=== PATIENT | female | born 1940 | race Caucasian/White ===

== ENCOUNTER 2024-07-26 15:07 | Observation (INO) | payer OTHER, SELFPAY ==
[2024-07-26] VITALS (8 sets, daily range): BP systolic 129–180; BP diastolic 60–93; BMI 24.4
--- NOTE | 2024-07-26 11:01 | ED.GENMED ---
History of Present Illness
<LILLIAN Stark - Last Filed: 07/26/24 14:23>
General
Chief Complaint: Weakness
Source: patient
Exam Limitations: none
Time Seen by Provider: 07/26/24 10:55
Nursing documentation reviewed up to this point in time: agreed with
History of Present Illness
History of Present Illness:
Patient is a 3-year-old female who presents to the ER for evaluation. She reports last night she noticed her right hand was numb. She woke up this morning around 8:45 am and noticed that her right hand was weak and she could not hold a coffee cup.
She denied any associate chest pain shortness of breath. She reports her right leg feels fine. She denies any headache blurry vision nausea vomiting.
Review of Systems
<LILLIAN Stark - Last Filed: 07/26/24 14:23>
Review of Systems
Allergies reviewed?: Yes
All Other Systems: ROS reviewed and negative except as documented in HPI and ROS
Constitutional: Reports no symptoms
Respiratory: Reports no symptoms
Cardiac: Reports no symptoms; Denies chest pain
ABD/GI: Reports no symptoms
: Reports no symptoms
Musculoskeletal: Reports no symptoms
Skin: Reports no symptoms
Neurological: Reports no symptoms
Psychiatric: Reports no symptoms
Phy Exam
<LILLIAN Stark - Last Filed: 07/26/24 14:23>
General Physical Exam
General Presentation: no apparent distress
General age: appears stated age
General Skin: warm and dry
General Habitus: normal
General Mental: alert
General Hydration: appears well hydrated
NIH Stroke Score
Level of Consciousness: 0 - Alert
LOC questions: 0-Answers both correctly
LOC Commands: 0-Performs both correctly
Best Gaze: 0-Normal
Visual Morocho: 0=Normal, no visual loss
Facial palsy: 0=Normal, symmetrical
Motor - Right Arm: 1=Drift < 10 seconds
Motor - Left Arm: 0=No drift 10 seconds
Motor - Right Le-No drift 5 seconds
Motor - Left Le-No drift 5 seconds
Limb Ataxia: 0-Absent
Sensation: 0-Normal
Best Language: 0-No aphasia
Dysarthria: 0-Normal
Extinction and Inattention: 0-No abnormality
Total Score:: 1
Cerebellar
Cerebellar Function: other (Patient having difficulty with [id number] on right hand due to weakness )
Musculoskeletal Exam
Musculoskeletal Exam: full ROM
Skin Exam
Skin Exam: normal color and warm/dry
Psychiatric Exam
Psychiatric Exam: normal mood/affect
<Jana Schmidt DO - Last Filed: 07/26/24 15:45>
NIH Stroke Score
Total Score:: 1
Course
<LILLIAN Stark - Last Filed: 07/26/24 14:23>
Orders/Labs/Results
Orders:
Orders
07/26/24 10:45
Electrocardiogram (*1) Urgent
Reason for Study: Other
Other Reason for Exam: Possible Stroke
CT Head W/o Iv Contrast Urgent
Comment:
Reason For Exam: R arm weakness
EKG- Treatment ONCE
07/26/24 10:52
Complete Blood Count/With Diff Urgent
Comprehensive Metabolic Panel Urgent
PTT Urgent
Prothrombin Time Urgent
Troponin I Urgent
07/26/24 11:06
CT Head & Neck Angio W/wo IV Urgent
Comment:
Reason For Exam: right arm weakness
07/26/24 11:16
Diphenhydramine [Benadryl] 50 mg IV NOW STA
Hydrocortisone Sod Succinate [Solu-Cortef] 200 mg IV NOW STA
07/26/24 11:27
0.9% Sodium Chloride 1000 ml [Nss] 1,000 ml IV BOLUS
07/26/24 14:18
Clopidogrel Bisulfate [Plavix] 300 mg PO NOW STA
07/26/24 14:41
Admit/Transfer Patient As Directed
Co-Sign Provider:
Level of Care: Observation services
Assign to:: Telemetry
Physician / Group: denise
Diagnosis: tia
Reason for Telemetry: CVA/TIA
Date to Stop Telemetry: 07/29/24
Time to Stop Telemetry: 11:00
Code Status As Directed
Resuscitation Status: Full Code
PRN Pain Medication Management As Directed
May give lesser potent ordered pain med per pt: Yes
preference::
Protocol:: Medication orders for pain may be administered in a
manner that supports deferring to patient preference
when the pt is:
- Requesting an ordered lesser potent pain medication.
Least to most potent pain medications are defined
as: acetaminophen < NSAID < tramadol < opioids
(morphine, oxycodone, hydromorphone).
- Requesting a lesser dose of the same medication IF
ORDERED.
- Requesting a less intrusive route of administration
if both routes are prescribed by the provider (PO <
IV).
07/26/24 18:00
Atorvastatin [Lipitor] 40 mg PO QPM
07/27/24 08:00
Aspirin Low Dose EC [Aspir Low (Enteric Coated)] 81 mg PO DAILY
07/29/24 11:00
DC Protocol for Telemetry ONCE
Abnormal Lab Results
07/26/24
10:52
RBC 4.04 L 10^6/uL
(4.20-5.40)
Hct 36.6 L %
(37.0-47.0)
Absolute Monos (auto) 0.8 H 10^3/uL
(0.1-0.6)
Monocytes % 12.0 H %
(1.7-9.3)
BUN 26 H mg/dl
(7-17)
Glucose 108 H mg/dl
(70-99)
07/26/24 10:52
07/26/24 10:52
Vital Signs
Initial and Last Documented VS:
Initial Vital Signs
Temp Pulse Resp BP Pulse Ox
98.5 F 68 18 167/93 97
07/26/24 10:39 07/26/24 10:39 07/26/24 10:39 07/26/24 10:39 07/26/24 10:39
Last Documented Vital Signs
Temp Pulse Resp BP Pulse Ox
98.5 F 62 14 172/70 93
07/26/24 10:39 07/26/24 14:00 07/26/24 14:00 07/26/24 12:00 07/26/24 12:17
Brown Stock Washer consulted with Physician
Brown Stock Washer consulted with physician?: Yes
Name of Physician Consulted: Roxana
<Jana Schmidt, DO - Last Filed: 07/26/24 15:45>
Orders/Labs/Results
Orders:
Orders
07/26/24 10:45
Electrocardiogram (*1) Urgent
Reason for Study: Other
Other Reason for Exam: Possible Stroke
CT Head W/o Iv Contrast Urgent
Comment:
Reason For Exam: R arm weakness
EKG- Treatment ONCE
07/26/24 10:52
Complete Blood Count/With Diff Urgent
Comprehensive Metabolic Panel Urgent
PTT Urgent
Prothrombin Time Urgent
Troponin I Urgent
07/26/24 11:06
CT Head & Neck Angio W/wo IV Urgent
Comment:
Reason For Exam: right arm weakness
07/26/24 11:16
Diphenhydramine [Benadryl] 50 mg IV NOW STA
Hydrocortisone Sod Succinate [Solu-Cortef] 200 mg IV NOW STA
07/26/24 11:27
0.9% Sodium Chloride 1000 ml [Nss] 1,000 ml IV BOLUS
07/26/24 14:18
Clopidogrel Bisulfate [Plavix] 300 mg PO NOW STA
07/26/24 14:41
Admit/Transfer Patient As Directed
Co-Sign Provider:
Level of Care: Observation services
Assign to:: Telemetry
Physician / Group: denise
Diagnosis: tia
Reason for Telemetry: CVA/TIA
Date to Stop Telemetry: 07/29/24
Time to Stop Telemetry: 11:00
Code Status As Directed
Resuscitation Status: Full Code
PRN Pain Medication Management As Directed
May give lesser potent ordered pain med per pt: Yes
preference::
Protocol:: Medication orders for pain may be administered in a
manner that supports deferring to patient preference
when the pt is:
- Requesting an ordered lesser potent pain medication.
Least to most potent pain medications are defined
as: acetaminophen < NSAID < tramadol < opioids
(morphine, oxycodone, hydromorphone).
- Requesting a lesser dose of the same medication IF
ORDERED.
- Requesting a less intrusive route of administration
if both routes are prescribed by the provider (PO <
IV).
07/26/24 18:00
Atorvastatin [Lipitor] 40 mg PO QPM
07/27/24 08:00
Aspirin Low Dose EC [Aspir Low (Enteric Coated)] 81 mg PO DAILY
07/29/24 11:00
DC Protocol for Telemetry ONCE
Abnormal Lab Results
07/26/24
10:52
RBC 4.04 L 10^6/uL
(4.20-5.40)
Hct 36.6 L %
(37.0-47.0)
Absolute Monos (auto) 0.8 H 10^3/uL
(0.1-0.6)
Monocytes % 12.0 H %
(1.7-9.3)
BUN 26 H mg/dl
(7-17)
Glucose 108 H mg/dl
(70-99)
07/26/24 10:52
07/26/24 10:52
Vital Signs
Initial and Last Documented VS:
Initial Vital Signs
Temp Pulse Resp BP Pulse Ox
98.5 F 68 18 167/93 97
07/26/24 10:39 07/26/24 10:39 07/26/24 10:39 07/26/24 10:39 07/26/24 10:39
Last Documented Vital Signs
Temp Pulse Resp BP Pulse Ox
98.5 F 62 14 172/70 93
07/26/24 10:39 07/26/24 14:00 07/26/24 14:00 07/26/24 12:00 07/26/24 12:17
<LILLIAN Stark - Last Filed: 07/26/24 14:23>
MDM/Problems Addressed
Differential Diagnosis Includes:
not limited to : CVA
MDM/Problems Addressed:
This document patient 83-year-old female who presented to the ER for evaluation. Patient reported last night around 8:30 PM she noticed her right hand was numb. This morning when she woke up around 8:30 AM she noticed her right arm was weak. She
reports numbness has resolved. She denies any associated headache blurry vision chest pain shortness of breath. She denies any left upper extremity/bilateral lower extremity weakness.
On exam she has obvious weakness to the right arm but no other deficit. CAT scan ordered on arrival patient was eval by ED attending.
Case discussed with neurology who evaluated patient. ct shows a calcification on right side which is not consistent with patient's symptoms. Patient evaluated by neurology CTA ordered: No findings to suggest internal carotid artery
atherosclerotic narrowing no findings to suggest internal carotid artery dissection bilaterally.
1350:Pt symptoms are now resolved . BP is elevated however patient normally does have high blood pressure and is on HCTZ. as d/c w/ neuro will adm
<LILLIAN Stark - Last Filed: 07/26/24 14:23>
*Radiology
Radiology exam reviewed: radiology read reviewed
*Pulse Oximetry
Patient hypoxic: no
*EKG
Interpreted by ED Provider?: Yes
Interpretation: normal
Heart Rate: 61
Rhythm: sinus
Ischemia: non-specific ST changes
*Critical Care Note
Total Time (30-74mins, 75-104mins- exclusive of procedures): Not Applicable
<LILLIAN Stark - Last Filed: 07/26/24 14:23>
Patient Management
Discussion with other providers: Tan Room Supervisor (neuro DR Wilkinson )
ED Attending Note
<LILLIAN Stark - Last Filed: 07/26/24 14:23>
-
Portions of this chart may have been created with voice recognition software.� Occasional wrong word or��sound alike� substitutions may have occurred due to the inherent limitations of voice recognition software.
<Jana Schmidt DO - Last Filed: 07/26/24 15:45>
ED Attending Note
Patient seen and examined by attending physician: Yes
I performed the substantive portion of visit, reviewed & personally made and approve the management plan that is documented in note by myself or RIGOBERTO.: Yes
ED Attending Note:
83-year-old female history of hypertension presenting with right arm weakness starting this morning. Patient states that last night around 830 she was having numbness to her right hand. Patient states that she went to bed around midnight with no
weakness. Patient said when she woke up this morning, she noted that her right hand was heavier and had difficulty holding her coffee cup in her right hand.. Patient denies any visual changes, speech changes, facial droop or other weakness.
Patient is not on blood thinners. No history of similar symptoms. Heart regular rate rhythm, lungs clear, abdomen soft also nontender. PERRLA, EOMI. Cranial nerves II through XII grossly intact no focal deficits. 4-5 strength right upper
extremity, 5 out of 5 strength left upper extremity and bilateral lower extremities. Right upper extremity pronator drift. Given onset of symptoms greater than 4.5 hours ago, patient outside window to receive TNK. Stroke workup, discuss with
neurology, admission
Discharge Plan
Departure
Patient Disposition: Admit
Date of Disposition: 07/26/24
Time of Disposition: 14:17
Admit to: Telemetry
Admit to doctor: hospitalist
Presentation/result/management discussed w/ accepting MD/DO: Hospitalist
Patient with high blood pressure during this ER visit?: Yes
Condition: Fair
Covid-19: Not Applicable
Discharge Problem:
TIA (transient ischemic attack), elevated blood presure
Interventions
Interventions:
*Risk Screen - Suicide Last Done: 07/26/24 10:39
*General Assessment Last Done: 07/26/24 10:39
*Neglect/Abuse Screening Last Done: 07/26/24 11:15
*ED COVID-19 Vaccine History Last Done: 07/26/24 11:15
ED- Cardiac Assessment Last Done: 07/26/24 11:48
ED- Neurological Assessment Last Done: 07/26/24 14:35
ED- Pulmonary Assessment Last Done: 07/26/24 11:15
[2024-07-26 11:03] LABS: % Basophils 0.8 % (0-2); % Eosinophils 3.2 % (0-6); % Immature Granulocytes 0.3 % (0-0.5); % Lymphocytes 30.4 % (20.5-51.1); % Neutrophils 53.3 % (42.2-75.2); Absolute Basophils 0.1 10^3/uL (0-0.2); Absolute Eosinophils 0.2 10^3/uL (0-0.7); Absolute Monocytes 0.8 10^3/uL (0.1-0.6); Absolute Neutrophils 3.5 10^3/uL (1.4-6.5); Hematocrit 36.6 % (37.0-47.0); Hemoglobin 12.3 g/dL (12.0-16.0); Mean Corp Hgb Conc. 33.6 g/dL (33.0-37.0); Mean Corpuscular Hgb 30.4 pg (27.0-31.0); Mean Corpuscular Volume 90.6 fL (81.0-99.0); Mean Platelet Volume 8.7 fL (7.4-10.4); Nucleated Red Blood Cells % 0 %; Platelet Count 191 10^3/uL (130-400); Red Blood Cell Count 4.04 10^6/uL (4.20-5.40); Red Cell Dist. Width 13.5 % (11.5-14.5); White Blood Cell Count 6.6 10^3/uL (4.8-10.8)
[2024-07-26 11:11] LABS: INR 0.91; PT 12.6 Sec (11.4-14.6)
[2024-07-26 11:12] LABS: APTT 25.2 Sec (23.4-35.0)
[2024-07-26 11:15] LABS: ALT (SGPT) 18 U/L (0-35); AST (SGOT) 29 U/L (14-36); Albumin 4.1 g/dl (3.5-5.0); Alkaline Phosphatase 61 U/L (38-126); Blood Urea Nitrogen 26 mg/dl (7-17); Carbon Dioxide 29 mmol/L (22-30); Chloride 105 mmol/L (98-107); Glucose 108 mg/dl (70-99); Potassium 4.4 mmol/L (3.5-5.1); Sodium 141 mmol/L (135-145); Total Bilirubin 1.1 mg/dl (0.2-1.3); Total Protein 7.6 g/dl (6.3-8.2); eGFR > 60.00
[2024-07-26] MEDS: SOLU-CORTEF 200 MG IV (11:21)
[2024-07-26] MEDS: BENADRYL 50 MG IV (11:21)
[2024-07-26 11:26] LABS: Troponin I 0.013 ng/ml
[2024-07-26] MEDS: NSS 1000 IV (11:51)
--- NOTE | 2024-07-26 13:26 | CON.NEURO ---
Neuro Assessment/Plan
Assessment
head CT imgs rev'd, no bleed, no major stroke, right sylvian fissure calcified artery
CTA head/neck images and rept rev'd, no LVO, no hemodynamically significant stenosis; mildly carotid calcifications, distal left V3/V4 vertebral stenosis
seen after imaging, patient symtoms are resolved
this clinically appears to be a TIA
Plan
Admit for tele, blood pressure, no need for permissive HTN as she is not MAP dependent. Ideally her blood pressure decreases ~25% tomorrow and she could be discharged
continue ASA 81
Load Plavix 300, then Plavix 75 x21 days
continue Lipitor 40 daily
spoke with patient that this is clinically a resolved TIA; MRI being optional, seeing a stroke changes the diagnosis but not the treatment, inpatient MRI scanner down for repairs, decision to not do MRI
Consultation
Order
Date of Consultation: 07/26/24
Requesting Provider: Loren Bales
Reason for Consult: Stroke
Subjective/Objective
Subjective Data
Date of Service: July 26, 2024
83 year old right handed woman, last night ~8:30 pm developed right hand weakness/numbness; this morning woke up with right arm weakness. in ED initial NIHSS was 1 for right arm; resolved after CTA. no bloodthinners
Objective Data
Vital Signs
Temp Pulse Resp BP Pulse Ox
36.9 C 62 21 180/76 95
07/26/24 10:39 07/26/24 11:45 07/26/24 11:45 07/26/24 11:14 07/26/24 11:45
Lab Results
07/26/24 10:52
07/26/24 10:52
PT 12.6 Sec (11.4-14.6) 07/26/24 10:52
INR 0.91 07/26/24 10:52
APTT 25.2 Sec (23.4-35.0) 07/26/24 10:52
Sodium 141 mmol/L (135-145) 07/26/24 10:52
Potassium 4.4 mmol/L (3.5-5.1) 07/26/24 10:52
BUN 26 mg/dl (7-17) H 07/26/24 10:52
Glucose 108 mg/dl (70-99) H 07/26/24 10:52
Calcium 10.0 mg/dl (8.4-10.2) 07/26/24 10:52
Patient Allergies
Iodinated Contrast Media Allergy (Verified 07/26/24 10:41)
Hives
morphine Allergy (Verified 07/26/24 10:41)
Hives
CVA Assessment
Onset of Stroke Symptoms
Onset of symptoms known: Yes
Date of onset of symptoms: 07/25/24
Time of onset of symptoms: 20:30
NIH Stroke Score
Level of Consciousness: 0 - Alert
LOC Questions: 0-Answers both correctly
LOC Commands: 0-Performs both correctly
Best Horizontal Gaze: 0-Normal
Visual Morocho: 0=Normal, no visual loss
Facial Palsy: 0=Normal, symmetrical
Motor - Right Arm: 1=Drift < 10 seconds
Motor - Left Arm: 0=No drift 10 seconds
Motor - Right Le-No drift 5 seconds
Motor - Left Le-No drift 5 seconds
Limb Ataxia: 0-Absent
Sensation: 0-Normal
Best Language: 0-No aphasia
Dysarthria: 0-Normal
Extinction and Inattention: 0-No abnormality
Total Score:: 1
Tenecteplase Contraindications
Inclusion and Exclusion criteria reviewed: Yes
Reasons for NON-Tx with Thrombolytics ABSOLUTE Exclusions: Time-out of window
Physical Exam
-
AAOx3, speech clear, language intact
VFF, EOMI, face symmetric
RUE 4/5, LUE and b/l LE 08/22
sensation intact to touch/pin
[2024-07-26] MEDS: PLAVIX 300 MG PO (14:32)
--- NOTE | 2024-07-26 14:44 | HPS.HSE ---
Family Physician
-
Family Physician: NOT KNOW UNKNOWN - PT DOES
Chief Complaint
-
right hand weakness
History of Present Illness
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 Last night she noticed that her right hand was
numb. She woke up this morning at 845 and noticed that her right hand was weak and she could not hold a cup of coffee. She denies any chest pain shortness of breath. Right leg feels fine. Denies headache, blurry vision, nausea or vomiting.
Denies any symptoms currently.
Denies smoking or alcohol use.
Denies any family history of strokes.
Medical History
Past Medical History
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
Past Surgical History: Reports None
Social History
Tobacco: Non-smoker
Alcohol: None
Drug: None
Family History
Family History: Not pertinent
Allergies / Home Medications
Allergies reflects when Allergies were last updated in [facility].
Home Medications with original date entered in [facility]
Allergy/Medication List:
Allergies
Allergy/AdvReac Type Severity Reaction Status Date / Time
Iodinated Contrast Media Allergy Hives Verified 07/26/24 10:41
morphine Allergy Hives Verified 07/26/24 10:41
Home Medications
citalopram 40 mg tablet (Celexa) 40 mg PO DAILY 07/26/24
Review of Systems
-
History Source: Patient
A 12 point ROS was completed and negative except as noted: Yes
Constitutional: Reports No Symptoms
EENT: Reports No Symptoms
Respiratory: Reports No Symptoms
Cardiac: Reports No Symptoms
Abdomen/GI: Reports No Symptoms
: Reports No Symptoms
Musculoskeletal: Reports No Symptoms
Skin: Reports No Symptoms
Neurological: Reports See HPI
Endocrine: Reports No Symptoms
Hematologic/Lymphatic: Reports No Symptoms
Psych: Reports No Symptoms
Physical Exam
Vital Signs
Vital Signs
Temp Pulse Resp BP Pulse Ox
98.5 F 62 14 172/70 93
07/26/24 10:39 07/26/24 14:00 07/26/24 14:00 07/26/24 12:00 07/26/24 12:17
Physical Exam
General: Well Developed, Well Nourished and No Apparent Distress
HEENT: NormoCephalic, Moist mucous membranes and Atraumatic
Respiratory: Clear
Cardiac: S1/S2 and Regular Rhythm; No Murmur or Rub
GI: Soft, Non Tender, Non Distended and Normal Bowel Sounds; No Organomegaly
Rectal: Deferred by Provider
Musculoskeletal: No Clubbing, No Cyanosis and No Edema
Skin: No Rash
Neuro: Nonfocal/grossly intact
Laboratory Results
-
07/26/24 10:52
07/26/24 10:52
Laboratory Results
PT 12.6 Sec (11.4-14.6) 07/26/24 10:52
INR 0.91 07/26/24 10:52
APTT 25.2 Sec (23.4-35.0) 07/26/24 10:52
Total Bilirubin 1.1 mg/dl (0.2-1.3) 07/26/24 10:52
AST 29 U/L (14-36) 07/26/24 10:52
ALT 18 U/L (0-35) 07/26/24 10:52
Alkaline Phosphatase 61 U/L (38-126) 07/26/24 10:52
Troponin I 0.013 ng/ml 07/26/24 10:52
Data Reviewed
-
Lab Data: Labs Reviewed by me
Old Records: Reviewed
Impression/Plan
-
IMPRESSION:
PLAN:
# Likely TIA
-No symptoms currently
- CTA head and neck showed no acute findings
- Aspirin and Plavix given, continue aspirin
- Check MRI brain
-Check A1c and lipid panel
- Neurology consulted
Essential hypertension
- Continue hydrochlorothiazide
GERD
- Continue omeprazole
Depression
- Continue citalopram
History of right lower lobe carcinoid tumor status post lung resection
Essential tremor of left hand
- Continue propranolol
Full code
DVT prophylaxis�SCDs
Regular diet
[2024-07-26 16:53] LABS: HDL Cholesterol 62 mg/dl; LDL Cholesterol, Calculated 125 mg/dl; Total Cholesterol 215 mg/dl (50-199); Triglyceride 142 mg/dl (10-149); Very Low Density Lipoprotein 28 mg/dl (0-30)
[2024-07-26] MEDS: LIPITOR 40 MG PO (17:54)
--- NOTE | 2024-07-26 18:31 | PTCARENOTE ---
Patient received from ED. AAOx3, ambulated from stretcher to bed with x1 assist. AAOx3, denies any pain, SOB. Can make needs known. Plan of care is ongoing.
[2024-07-27 03:12] VITALS: BP 151/81
[2024-07-27 07:35] VITALS: BP 158/90
[2024-07-27 08:06] LABS: % Basophils 0.5 % (0-2); % Eosinophils 0.8 % (0-6); % Immature Granulocytes 0.4 % (0-0.5); % Lymphocytes 35.7 % (20.5-51.1); % Monocytes 11.8 % (1.7-9.3); % Neutrophils 50.8 % (42.2-75.2); Absolute Eosinophils 0.1 10^3/uL (0-0.7); Absolute Neutrophils 4.3 10^3/uL (1.4-6.5); Hematocrit 32.4 % (37.0-47.0); Hemoglobin 11.2 g/dL (12.0-16.0); Mean Corp Hgb Conc. 34.6 g/dL (33.0-37.0); Mean Corpuscular Hgb 30.6 pg (27.0-31.0); Mean Corpuscular Volume 88.5 fL (81.0-99.0); Mean Platelet Volume 9.4 fL (7.4-10.4); Nucleated Red Blood Cells % 0 %; Platelet Count 169 10^3/uL (130-400); Red Blood Cell Count 3.66 10^6/uL (4.20-5.40); Red Cell Dist. Width 13.3 % (11.5-14.5); White Blood Cell Count 8.5 10^3/uL (4.8-10.8)
[2024-07-27 08:50] LABS: ALT (SGPT) 16 U/L (0-35); AST (SGOT) 25 U/L (14-36); Albumin 3.9 g/dl (3.5-5.0); Alkaline Phosphatase 62 U/L (38-126); Blood Urea Nitrogen 28 mg/dl (7-17); Calcium 9.6 mg/dl (8.4-10.2); Carbon Dioxide 25 mmol/L (22-30); Chloride 107 mmol/L (98-107); Estimated Creatinine Clearance 48 ml/min; Glucose 93 mg/dl (70-99); Potassium 3.3 mmol/L (3.5-5.1); Sodium 142 mmol/L (135-145); Total Protein 6.8 g/dl (6.3-8.2); eGFR > 60.00
[2024-07-27] MEDS: ASPIR LOW (ENTERIC COATED) 81 MG PO (10:10)
[2024-07-27 10:30] LABS: Glycohemoglobin (HgbA1c) 5.4 % (4.0-5.6)
[2024-07-27 11:04] VITALS: BP 121/58
--- NOTE | 2024-07-27 13:01 | CM ---
Met with patient who is stable for discharge. She stated that she lives with her spouse in [facility]. Everything is all on one level. No steps to enter. She described herself as independent with her ADLs, personal care, dressing and
bathing. She can do snaker, cook, clean do laundry. She drives and can get to appointments and does her own shopping. She has never been to a SNF, she has not had VN services in the past. She stated that her spouse will transport her home.
Patient has a prescription plan and uses, [facility] for all of her medications,
Patient's PCP is, not listed.
OBS status reviewed and patient signed SOLIS. Now on chart.
Plan: Case management will continue to follow and assist with discharge planning. Home with spouse.
--- NOTE | 2024-07-27 13:11 | W.DCSUMMARY ---
Discharge Summary
Discharge Data
Date of Admission: 07/26/24
Date of Discharge: 07/27/24
-
Pending Results: No
Hospital Course
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
Presented with acute onset right hand weakness/numbness that began the night before presentation to the hospital. TNK window. CT brain was completed that did not straight acute abnormalities, CT head and neck angiography no findings suggest
significant internal carotid atherosclerotic narrowing. Evaluated by neurology recommended MRI along with aspirin and Plavix x 21 days followed by aspirin indefinitely. Statin indefinitely. Outpatient PCP neurology follow-up. Continue monitor
blood pressure closely by taking it twice a day keep a log and review with PCP to adjust medications.
CT Head
IMPRESSION:
No acute intracranial abnormalities.
Findings compatible with diffuse cortical atrophy with nonspecific white matter changes as described above.
CTHead with Angio
IMPRESSION:
No findings to suggest significant internal carotid atherosclerotic narrowing bilaterally.
No findings to suggest internal carotid artery dissection bilaterally.
Dominant right vertebral artery. Relative abrupt change in caliber of the distal left vertebral artery at the junction of the V3/V4 segment with relative narrow caliber of the distal intracranial portion of the left vertebral artery suggesting
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
No findings to suggest proximal intracranial arterial stenosis or vessel cut off bilaterally. Prominent likely atherosclerotic calcification of the branch of the right middle cerebral artery in the right sylvian fissure.
Some groundglass opacity particularly seen within the fluid of portions of the upper lobe of the right lung, nonspecific. One differential diagnostic possibility would be acute pulmonary edematous changes.
Small bilateral thyroid nodules, peripherally calcified on the left. In light of patient age, no further evaluation is suggested.
MRI Brain
IMPRESSION:
There are a few tiny cortical infarct foci involving the left central sulcus. No associated mass effect or hemorrhage. No large vascular territory transcortical infarct.
On the day of discharge 07/27/2024. No new complaints. No acute overnight events. No new complaints.
NAD
Scleral Anicteric
DMM
No JVD
CTABL
RRR, S1/S2
Soft, NT, ND, BS+
Warm, Dry
AAOx3
Calm
More than 30 minutes spent in discharge including
Final examination of the patient
Summarizing hospital stay
Instructions for continuing care to all relevant caregivers
Preparation of discharge records, prescriptions, and referral forms
Total time spent (in minutes): 33min
Discharge Plan
-
Patient Disposition: Home (Routine Discharge)
Discharge Diagnosis/Procedures: acute cva
Condition: Good
Diet: As tolerated
Activity: As tolerated
Activity Restrictions/Additional Instructions:
Presented with acute onset right hand weakness/numbness that began the night before presentation to the hospital. TNK window. CT brain was completed that did not straight acute abnormalities, CT head and neck angiography no findings suggest
significant internal carotid atherosclerotic narrowing. Evaluated by neurology recommended MRI along with aspirin and Plavix x 21 days followed by aspirin indefinitely. Statin indefinitely. Outpatient PCP neurology follow-up. Continue monitor
blood pressure closely by taking it twice a day keep a log and review with PCP to adjust medications.
CT Head
IMPRESSION:
No acute intracranial abnormalities.
Findings compatible with diffuse cortical atrophy with nonspecific white matter changes as described above.
CTHead with Angio
IMPRESSION:
No findings to suggest significant internal carotid atherosclerotic narrowing bilaterally.
No findings to suggest internal carotid artery dissection bilaterally.
Dominant right vertebral artery. Relative abrupt change in caliber of the distal left vertebral artery at the junction of the V3/V4 segment with relative narrow caliber of the distal intracranial portion of the left vertebral artery suggesting
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
No findings to suggest proximal intracranial arterial stenosis or vessel cut off bilaterally. Prominent likely atherosclerotic calcification of the branch of the right middle cerebral artery in the right sylvian fissure.
Some groundglass opacity particularly seen within the fluid of portions of the upper lobe of the right lung, nonspecific. One differential diagnostic possibility would be acute pulmonary edematous changes.
Small bilateral thyroid nodules, peripherally calcified on the left. In light of patient age, no further evaluation is suggested.
MRI Brain
IMPRESSION:
There are a few tiny cortical infarct foci involving the left central sulcus. No associated mass effect or hemorrhage. No large vascular territory transcortical infarct.
Referrals:
Michelle,Flakita, LILLIAN [Specified Professional Personl] -
UNKNOWN - PT DOES,NOT KNOW [Family Provider] -
Prescriptions:
New
aspirin 81 mg Tablet,Delayed Release (Dr/Ec)
81 mg PO DAILY Qty: 30 0RF
atorvastatin 40 mg Tablet
40 mg PO QPM Qty: 30 0RF
clopidogrel [Plavix] 75 mg tablet
75 mg PO DAILY Qty: 21 0RF
Continued
therapeutic multivitamin Tablet
1 tab PO DAILY
omeprazole 40 mg Capsule,Delayed Release(Dr/Ec)
40 mg PO DAILY
propranolol 40 mg Tablet
40 mg PO BID
hydrochlorothiazide 25 mg Tablet
25 mg PO DAILY
citalopram [Celexa] 40 mg Tablet
40 mg PO DAILY Qty: 30 0RF
Hair, Skin and Nails (biotin) 10,000 mcg Tablet,Chewable
10,000 mcg PO DAILY Qty: 30 0RF
Discontinued
atorvastatin [Lipitor] 40 mg Tablet
40 mg PO HS
aspirin 81 mg Tablet,Delayed Release (Dr/Ec)
81 mg PO DAILY
Discharge Orders:
Discharge Patient (As Directed); Ordered 07/27/24
Ordered By: Shaggy Page
Discharge Date and Time
Print Language: SENEGALESE
--- NOTE | 2024-07-27 14:29 | PTCARENOTE ---
Educated pt on discharge packet. Answered all questions. Pt received CD copy of brain MRI, sent home with pt. No questions about medications. IV removed, tele removed. to transport home.
== END 2024-07-27 14:28 | disposition home or self-care (01) ==
LOC: 4 EAST ACU 15:07
PROVIDERS: Emergency Medicine; ADMITTING PHYSICIAN Hospitalist; ATTENDING PHYSICIAN Hospitalist; CONSULT PHYSICIAN Psychiatry & Neurology Clinical Neurophysiology; EMERGENCY PHYSICIAN Emergency Medicine
DX: R53.1 Weakness (principal); Z79.02 Long term (current) use of antithrombotics/antiplatelets; I10 Essential (primary) hypertension; Z79.899 Other long term (current) drug therapy; K21.9 Gastro-esophageal reflux disease without esophagitis; F32.A Depression, unspecified; G25.0 Essential tremor; E04.2 Nontoxic multinodular goiter; Z86.73 Personal history of transient ischemic attack (TIA), and cerebral infarction without residual deficits
CPT/HCPCS: 70450; 70496; 70498; 70551; 80053; 80061; 83036; 84484; 85025; 85610; 85730; 93005; 96361; 96374; 96375; 99285; G0378; Q9967